=== PATIENT | male | born 1990 | race Caucasian/White ===

== ENCOUNTER 2023-08-21 04:48 | Inpatient (IN) | payer BC ==
--- OUTSIDE RECORDS SUMMARY | 2023-08-21 04:52 | XMS REPORT | Continuity of Care Document ---
Author Name Unknown Address [address] [place] [address] [facility] Address [address] [place] [address] Care Team Providers Care Library Cataloging Technician Name Role Phone PCP, PATIENT DOES NOT HAVE A Primary Care Physic adam Unavailable PARVIN WALLER Attending Clinician Unavailable Parvin Champagne Attending Clinician [phone] NICKIE CHIN Attending Clinician Unavailable NICKIE CHIN Admitting Clinician Unavailable Payers Payer Name Policy Type Policy Number Effective Date Expirati on Date Source [facility] [place] - OUT OF STATE [id number] 2021 00:00:00 Problems Condition Name Condition Details Condition Category Status Onset Date Resolution Date Last Treatment Date Treating Clinician Comments Source No known active problems No known active problems Disease [facility] Allergies, Adverse Reactions, Alerts Allergy Name Allergy Type Status Severity Reaction(s) Onset Date Inactive Date Treating Clinician Comments Source Penicill ins Propensi ty to adverse reaction s Active Other - See comments 03-05 00:00: 00 Childhood allergy [facility] PENICILL INS Drug Class Active Other-Cmnt 03-05 00:00: 00 [facility] Social History Social Habit Start Date Stop Date Quantity Comments Source Exposure to SARS-CoV-2 (event) 2022-02-23 00:00:00 2022-03-05 15:13:00 Not sure [facility] Sex Assigned At 1990 00:00:00 1990 00:00:00 [facility] Smoking Status Start Date Stop Date Source Tobacco smoking consumption unknown [facility] Medications Ordered Medication Name Filled Medication Name Start Date Stop Date Current Medication? Ordering Clinician Indication Dosage Frequency Signature (SIG) Comments Components Source ibuprofen (IBU) tablet 800 mg 03-05 20:30: 00 03-05 21:03 :00 No 800mg 800 mg, Oral, ONCE, 1 dose, On Sat03/05/22 at 1530, [place] [facility] acetaminoph en (TYLENOL) tablet 1,000 mg 03-05 20:30: 00 03-05 21:03 :00 No 1000mg 1,000 mg, Oral, ONCE, 1 dose, On Sat03/05/22 at 1530, Routine [facility] ondansetron 4 mg disintegrat ing tablet 03-05 00:00: 00 Yes [id number] 4mg Take 1 tablet by mouth every 8 (eight) hours as needed for Nausea and Vomiting (N/V). [facility] benzonatate 200 mg capsule 03-05 00:00: 00 Yes [id number] 200mg Take 1 capsule by mouth 3 (three) times daily as needed for Cough. [facility] codeine-gua ifenesin 10-100 mg/5 mL oral solution 03-05 00:00: 00 03-13 04:59 :00 No [id number] 10mL Take 10 mL by mouth every 6 (six) hours as needed for Cough for up to 7 days. Indication s: acute pain [facility] Vital Signs Vital Name Observation Time Observation Value Comments S mario Systolic blood pressure 2022-03-05 20:14:00 123 mm[Hg] [facility] Diastolic blood pressure 2022-03-05 20:14:00 86 mm[Hg] [facility] Heart rate 2022-03-05 20:14:00 102 /min [facility] Body temperature 2022-03-05 20:14:00 39.56 Amanda [facility] Respiratory rate 2022-03-05 20:14:00 19 /min [facility] Body height 2022-03-05 20:14:00 177.8 cm [facility] Body weight 2022-03-05 20:14:00 90.719 kg [facility] BMI 2022-03-05 20:14:00 28.70 kg/m2 [facility] Oxygen saturation in Arterial blood by Pulse oximetry 2022-03-05 20:14:00 100 /min [facility] Procedures Procedure Date / Time Performed Performing Clinicia n Source COVID-19 (ID NOW RAPID TESTING) 2022-03-05 20:20:00 Parvin Waller [facility] NOTICE OF PRIVACY PRACTICES 2022-03-05 19:56:55 Doctor Unassigned, [place] [facility] Encounters Start Date/Time End Date/Time Encounter Type Admission Type Attending Clinicians Care Facility Care Department Encounter ID Source 2022-03-05 15:15:00 2022-03-05 16:12:00 Emergency X PARVIN WALLER [facility] ERT [id number] [facility] 2022-03-05 15:15:00 2022-03-05 16:12:00 Emergency Parvin Waller [facility] [id number] [facility] 2017-09-11 00:40:00 2017-09-12 15:18:00 Inpatient ER NICKIE CHIN [facility] [id number] [facility]
[2023-08-21] MEDS ORDERED: ONDANSETRON 4 MG/2 ML VIAL ONE (05:28)
[2023-08-21] MEDS ORDERED: NA CHLORIDE 0.9% 1,000 ML ONE ×2 (05:28→06:53)
[2023-08-21] MEDS ORDERED: FAMOTIDINE 20 MG/2 ML VIAL IV ONE (05:28)
[2023-08-21] MEDS ORDERED: MORPHINE 4 MG/ML SYR ONE (05:28)
[2023-08-21 05:48] LABS: Specific Gravity 1.027 (1.005-1.030); Urine Bilirubin NEGATIVE (Negative); Urine Blood Negative (Negative); Urine Clarity Clear (Clear); Urine Color Yellow (Yellow); Urine Glucose NEGATIVE (Negative); Urine Protein NEGATIVE (Negative); Urine Urobilinogen Normal (Normal)
[2023-08-21 05:50] LABS: Absolute Lymphocytes (CBC) 1.7 K/uL (0.7-4.9); Hematocrit 47.7 % (39.6-49.0); Lymphocytes % 16.6 % (15.3-44.8); MCV 90.8 fL (80-100); MPV 9.9 fL (7.6-11.3); Platelets 230 thou/uL (152-406); RBC Red Blood Cell Count 5.26 M/uL (4.33-5.43)
[2023-08-21 06:05] LABS: Albumin 4.1 g/dL (3.4-5.0); Bilirubin Total 0.7 mg/dL (0.2-1.0); Potassium 3.8 mEq/L (3.5-5.1); Protein, Total 8.7 g/dL (6.4-8.2)
--- NOTE | 2023-08-21 06:49 | EDPHYS ---
Physician Documentation [facility] Name: Suhail Grajeda Age: 32 yrs Sex: Male : 1990 Arrival Date: 08/21/2023 Time: 04:48 Bed 13 Private MD: ED Physician Alexander Singh HPI: 08/21 05:06 This 32 yrs old Male presents to ER via Unassigned with complaints of lyndon Abdominal Pain. 05:06 The patient presents with abdominal pain in the lower abdomen, abdominal distention in lyndon the upper abdomen, in the lower abdomen. Onset: The symptoms/episode began/occurred yesterday. The symptoms do not radiate. Associated signs and symptoms: none. The symptoms are described as crampy. Modifying factors: The symptoms are alleviated by nothing, the symptoms are aggravated by nothing. Severity of pain: At its worst the pain was moderate in the emergency department the pain is unchanged. The patient has not experienced similar symptoms in the past. Historical: - Allergies: 05:13 PENICILLINS; tm6 - PMHx: 05:13 Myocardial infarction; tm6 - PSHx: 05:13 Appendectomy; right arm surgery for break; tm6 - Immunization history:: Adult Immunizations up to date, Client reports having NOT received the Covid vaccine. Flu vaccine is not up to date. - Social history:: Smoking status: Patient denies any tobacco usage or history of. Patient uses alcohol, occasionally. - Family history:: not pertinent. ROS: 05:06 Constitutional: Negative for fever, chills, and weight loss, Eyes: Negative for injury, lyndon pain, redness, and discharge, ENT: Negative for injury, pain, and discharge, Neck: Negative for injury, pain, and swelling, Cardiovascular: Negative for chest pain, palpitations, and edema, Respiratory: Negative for shortness of breath, cough, wheezing, and pleuritic chest pain, Back: Negative for injury and pain, : Negative for injury, bleeding, discharge, and swelling, MS/Extremity: Negative for injury and deformity, Skin: Negative for injury, rash, and discoloration, Neuro: Negative for headache, weakness, numbness, tingling, and seizure, Psych: Negative for depression, anxiety, suicide ideation, homicidal ideation, and hallucinations, Allergy/Immunology: Negative for hives, rash, and allergies, Endocrine: Negative for neck swelling, polydipsia, polyuria, polyphagia, and marked weight changes, Hematologic/Lymphatic: Negative for swollen nodes, abnormal bleeding, and unusual bruising, 05:06 Abdomen/GI: Positive for abdominal pain, nausea, abdominal cramps, abdominal distension, of the right lower quadrant and left lower quadrant, Exam: 05:06 Constitutional: This is a well developed, well nourished patient who is awake, alert, lyndon and in no acute distress. Head/Face: Normocephalic, atraumatic. Eyes: Pupils equal round and reactive to light, extra-ocular motions intact. Lids and lashes normal. Conjunctiva and sclera are non-icteric and not injected. Cornea within normal limits. Periorbital areas with no swelling, redness, or edema. ENT: Nares patent. No nasal discharge, no septal abnormalities noted. Tympanic membranes are normal and external auditory canals are clear. Oropharynx with no redness, swelling, or masses, exudates, or evidence of obstruction, uvula midline. Mucous membranes moist. Neck: Trachea midline, no thyromegaly or masses palpated, and no cervical lymphadenopathy. Supple, full range of motion without nuchal rigidity, or vertebral point tenderness. No Meningismus. Chest/axilla: Normal chest wall appearance and motion. Nontender with no deformity. No lesions are appreciated. Cardiovascular: Regular rate and rhythm with a normal S1 and S2. No gallops, murmurs, or rubs. Normal PMI, no JVD. No pulse deficits. Respiratory: Lungs have equal breath sounds bilaterally, clear to auscultation and percussion. No rales, rhonchi or wheezes noted. No increased work of breathing, no retractions or nasal flaring. Back: No spinal tenderness. No costovertebral tenderness. Full range of motion. Male : Normal genitalia with no discharge or lesions. Skin: Warm, dry with normal turgor. Normal color with no rashes, no lesions, and no evidence of cellulitis. MS/ Extremity: Pulses equal, no cyanosis. Neurovascular intact. Full, normal range of motion. Neuro: Awake and alert, GCS 15, oriented to person, place, time, and situation. Cranial nerves II-XII grossly intact. Motor strength 5/5 in all extremities. Sensory grossly intact. Cerebellar exam normal. Normal gait. Psych: Awake, alert, with orientation to person, place and time. Behavior, mood, and affect are within normal limits. 05:06 Abdomen/GI: Inspection: distension, Bowel sounds: normal, Palpation: mild abdominal tenderness, in the right lower quadrant and left lower quadrant, Liver: no appreciated palpable abnormalities, Hernia: not appreciated, Vital Signs: 05:12 BP 139 / 94; Pulse 67; Resp 17; Temp 98(O); Pulse Ox 98% on R/A; Weight 95.25 kg; tm6 Height 5 ft. 9 in. ; Pain 8/10; 05:45 BP 135 / 86; Pulse 73; Pulse Ox 96% on R/A; tm6 06:25 BP 126 / 71; Pulse 65; Pulse Ox 97% on R/A; Pain 4/10; tm6 05:12 Body Mass Index 31.01 (95.25 kg, 175.26 cm) [facility] 05:12 Pain Scale: Adult 6 06:25 Pain Scale: Adult 6 MDM: 04:55 Patient medically screened. [facility] 05:10 Differential diagnosis: bowel obstruction, Cholelithiasis, diverticulitis, lyndon gastroesophageal reflux disease, non-specific abd pain, pancreatitis, Peptic Ulcer Disease, Pyelonephritis, urinary tract infection. Data reviewed: vital signs, nurses notes, lab test result(s), radiologic studies, CT scan. Consideration of Admission/Observation Escalation of care including admission/observation considered. I considered the following discharge prescriptions or medication management in the emergency department Medications were administered in the Emergency Department. See MAR. Independent interpretation of the following test(s) in the Emergency Department CT Scan: My interpretation is ct abd/pelvis. Test considered but Not performed: EKG: no ekg needed. Care significantly affected by the following chronic conditions:. 08/21 04:57 Order name: CBC with Diff; Complete Time: 06:12 [facility] 08/21 04:57 Order name: CMP; Complete Time: 06:12 [facility] 08/21 04:57 Order name: Lipase; Complete Time: 06:12 [facility] 08/21 04:57 Order name: Urinalysis w/ reflexes; Complete Time: 06:12 [facility] 08/21 04:57 Order name: CT Abd/Pelvis - IV Contrast Only [facility] 08/21 04:57 Order name: IV Saline Lock; Complete Time: 05:41 [facility] 08/21 04:57 Order name: Labs collected and sent; Complete Time: 05:41 lyndon Administered Medications: 05:41 Drug: NS 0.9% IV 1000 ml IV at 1 bolus Per protocol; 1000 mL bolus Route: IV; Rate: 1 tm6 bolus; Site: right antecubital; 07:02 Follow up: Response: No adverse reaction; IV Intake: 1000ml tm6 08:20 Follow up: IV Status: Completed infusion; IV Intake: 1000ml db 05:41 Drug: Famotidine IVP 20 mg IVP once; dilute with 10 mL 0.9% NaCl; give over 2 minutes tm6 Route: IVP; Site: right antecubital; 08:20 Follow up: Response: No adverse reaction db 05:41 Drug: Ondansetron IVP 4 mg IVP once; over 2 minutes Route: IVP; Site: right antecubital;tm6 08:20 Follow up: Response: No adverse reaction db 05:41 Drug: morphine IVP or IV 4 mg IVP once over 4 mins Route: IVP; Infused Over: 4 mins; tm6 Site: right antecubital; 07:02 Drug: metroNIDAZOLE IVPB 500 mg 100 ml IVPB at 200 ml/hr once over 30 mins Volume: 100 tm6 ml; Route: IVPB; Rate: 200 ml/hr; Infused Over: 30 mins; Site: right antecubital; 07:30 Follow up: Response: No adverse reaction; IV Status: Completed infusion db 07:03 Drug: NS 0.9% IV 1000 ml IV at 1 bolus Per protocol; 1000 mL bolus Route: IV; Rate: 1 tm6 bolus; Site: right antecubital; 08:20 Follow up: IV Status: Completed infusion db 08:00 Drug: Ciprofloxacin IVPB 400 mg 200 ml IVPB once over 60 mins Volume: 200 ml; Route: db IVPB; Infused Over: 60 mins; Site: right antecubital; 08:20 Follow up: IV Status: Infusion continued upon admission db Disposition Summary: 08/21/23 06:49 Hospitalization Ordered Notes: Hospitalization Status: Inpatient Admission lyndon Provider: Edgar South cha [facility] lyndon Condition: Stable lyndon Problem: new lyndon Symptoms: have improved lyndon Bed/Room Type: Standard [facility] Room Assignment: 224(08/21/23 07:38) bd Diagnosis - Other intestinal obstruction - early obstruction lyndon - Abdominal tenderness lyndon Forms: - Medication Reconciliation Form lyndon - SBAR form lyndon - Leadership Thank You Letter lyndon Signatures: Dispatcher [employer] Kassy Hernandez Corey, MD MD cha Benton, Danielle RN RN db Venessa Spencer RN RN tm6 Corrections: (The following items were deleted from the chart) 07:38 06:49 lyndon bd
--- NOTE | 2023-08-21 06:49 | ER ---
Nurse's Notes [facility] Name: Suhail Grajeda Age: 32 yrs Sex: Male : 1990 Arrival Date: 08/21/2023 Time: 04:48 Bed 13 Private MD: Diagnosis: Other intestinal obstruction-early obstruction ;Abdominal tenderness Presentation: 08/21 05:12 Chief complaint: Patient states: lower abdominal pain that started yesterday evening. tm6 8/10 sharp pain. Coronavirus screen: Vaccine status: Patient reports being unvaccinated. Ebola Screen: Patient negative for fever greater than or equal to 101.5 degrees Fahrenheit, and additional compatible Ebola Virus Disease symptoms Patient denies exposure to infectious person. Patient denies travel to an Ebola-affected area in the 21 days before illness onset. No symptoms or risks identified at this time. Initial Sepsis Screen: Does the patient meet any 2 criteria? No. Patient's initial sepsis screen is negative. Does the patient have a suspected source of infection? No. Patient's initial sepsis screen is negative. Risk Assessment: Do you want to hurt yourself or someone else? Patient reports no desire to harm self or others. Onset of symptoms was August 20, 2023. 05:12 Method Of Arrival: Ambulatory tm6 05:12 Acuity: EJ 3 tm6 Triage Assessment: 05:13 General: Appears in no apparent distress. uncomfortable, Behavior is calm, cooperative. tm6 Pain: Complains of pain in left lower quadrant and right lower quadrant Pain currently is 8 out of 10 on a pain scale. Quality of pain is described as sharp, Pain began 1 day ago. EENT: No signs and/or symptoms were reported regarding the EENT system. Neuro: Level of Consciousness is awake, alert, obeys commands. Cardiovascular: Capillary refill < 3 seconds Patient's skin is warm and dry. Respiratory: Airway is patent Respiratory effort is even, unlabored, Respiratory pattern is regular, symmetrical. GI: Abdomen is flat, non-distended, Abd is soft Abdomen is tender to palpation in right lower quadrant and left lower quadrant Reports lower abdominal pain. : No signs and/or symptoms were reported regarding the genitourinary system. Derm: No signs and/or symptoms reported regarding the dermatologic system. Musculoskeletal: No signs and/or symptoms reported regarding the musculoskeletal system. Historical: - Allergies: 05:13 PENICILLINS; tm6 - PMHx: 05:13 Myocardial infarction; tm6 - PSHx: 05:13 Appendectomy; right arm surgery for break; tm6 - Immunization history:: Adult Immunizations up to date, Client reports having NOT received the Covid vaccine. Flu vaccine is not up to date. - Social history:: Smoking status: Patient denies any tobacco usage or history of. Patient uses alcohol, occasionally. - Family history:: not pertinent. Screenin:16 [facility] ED Fall Risk Assessment (Adult) History of falling in the last 3 months, tm6 including since admission No falls in past 3 months (0 pts). Abuse screen: Denies threats or abuse. Denies injuries from another. Nutritional screening: No deficits noted. Tuberculosis screening: No symptoms or risk factors identified. Assessment: 05:16 Reassessment: see triage assessment. tm6 06:25 Reassessment: Patient appears in no apparent distress at this time. Patient and/or tm6 family updated on plan of care and expected duration. Pain level reassessed. Patient is alert, oriented x 3, equal unlabored respirations, skin warm/dry/pink. 07:15 Neuro: Level of Consciousness is awake, alert, obeys commands, Oriented to. db 07:15 Respiratory: Airway is patent Respiratory effort is even, unlabored, Respiratory db pattern is regular, symmetrical. GI:. 07:57 Reassessment: Patient appears in no apparent distress at this time. Patient and/or db family updated on plan of care and expected duration. Pain level reassessed. Patient is alert, oriented x 3, equal unlabored respirations, skin warm/dry/pink. General: Appears in no apparent distress. comfortable, Behavior is calm, cooperative. 07:59 Reassessment: REPORT GIVEN TO MEGHAN. spencer Vital Signs: 05:12 BP 139 / 94; Pulse 67; Resp 17; Temp 98(O); Pulse Ox 98% on R/A; Weight 95.25 kg; tm6 Height 5 ft. 9 in. ; Pain 8/10; 05:45 BP 135 / 86; Pulse 73; Pulse Ox 96% on R/A; tm6 06:25 BP 126 / 71; Pulse 65; Pulse Ox 97% on R/A; Pain 4/10; tm6 05:12 Body Mass Index 31.01 (95.25 kg, 175.26 cm) tm6 05:12 Pain Scale: Adult tm6 06:25 Pain Scale: Adult tm6 ED Course: 04:54 Patient arrived in ED. gm2 04:55 Alexander Singh MD is Attending Physician. lyndon 05:11 Venessa Spencer RN is Primary Nurse. tm6 05:13 Triage completed. tm6 05:13 Arm band placed on right wrist. tm6 05:16 Patient has correct armband on for positive identification. Bed in low position. Call tm6 light in reach. Side rails up X2. Provided Education on: plan of care. Client placed on continuous cardiac and pulse oximetry monitoring. NIBP monitoring applied. Door closed. Noise minimized. 05:16 No provider procedures requiring assistance completed. tm6 06:06 CT Abd/Pelvis - IV Contrast Only In Process Unspecified. EDMS 06:48 Edgar South MD is Hospitalizing Provider. lyndon 07:07 Report given to Laura MANJARREZ. tm6 07:56 Patient admitted, IV remains in place. db Administered Medications: 05:41 Drug: NS 0.9% IV 1000 ml IV at 1 bolus Per protocol; 1000 mL bolus Route: IV; Rate: 1 tm6 bolus; Site: right antecubital; 07:02 Follow up: Response: No adverse reaction; IV Intake: 1000ml tm6 08:20 Follow up: IV Status: Completed infusion; IV Intake: 1000ml db 05:41 Drug: Famotidine IVP 20 mg IVP once; dilute with 10 mL 0.9% NaCl; give over 2 minutes tm6 Route: IVP; Site: right antecubital; 08:20 Follow up: Response: No adverse reaction db 05:41 Drug: Ondansetron IVP 4 mg IVP once; over 2 minutes Route: IVP; Site: right antecubital;tm6 08:20 Follow up: Response: No adverse reaction db 05:41 Drug: morphine IVP or IV 4 mg IVP once over 4 mins Route: IVP; Infused Over: 4 mins; tm6 Site: right antecubital; 07:02 Drug: metroNIDAZOLE IVPB 500 mg 100 ml IVPB at 200 ml/hr once over 30 mins Volume: 100 tm6 ml; Route: IVPB; Rate: 200 ml/hr; Infused Over: 30 mins; Site: right antecubital; 07:30 Follow up: Response: No adverse reaction; IV Status: Completed infusion db 07:03 Drug: NS 0.9% IV 1000 ml IV at 1 bolus Per protocol; 1000 mL bolus Route: IV; Rate: 1 tm6 bolus; Site: right antecubital; 08:20 Follow up: IV Status: Completed infusion db 08:00 Drug: Ciprofloxacin IVPB 400 mg 200 ml IVPB once over 60 mins Volume: 200 ml; Route: db IVPB; Infused Over: 60 mins; Site: right antecubital; 08:20 Follow up: IV Status: Infusion continued upon admission db Medication: 05:16 VIS not applicable for this client. tm6 Intake: 07:02 IV: 1000ml; Total: 1000ml. tm6 08:20 IV: 1000ml; Total: 2000ml. db Output: 05:46 Gastric: 1000ml (Emesis); Total: 1000ml. tm6 Outcome: 06:49 Decision to Hospitalize [facility] 07:56 Admitted to ER Hold. Please see [facility] for further documentation. db 07:56 Condition: stable 07:56 Instructed on the need for admit, 08:21 Patient left the ED. db Signatures: Dispatcher [employer] EDAlexander So MD MD cha Benton, Danielle, JOSSELINE RN Chiquita Tamez [facility] Venessa Spencer RN RN tm6 Corrections: (The following items were deleted from the chart) 05:47 05:46 Reassessment: 1000mL of emesis tm6 tm6 07:59 07:15 Reassessment: REPORT GIVEN TO RODDY spencer db
[2023-08-21] MEDS ORDERED: METRONIDAZOLE 500mg IVPB 500 MG/100 ML BAG IV ONE (06:54)
[2023-08-21] MEDS ORDERED: CIPROFLOXACIN 400mg IV 400 MG/200 ML BAG IV ONE (06:54)
[2023-08-21] MEDS ORDERED: MORPHINE 4 MG/ML SYR IV PRN (07:24)
[2023-08-21] MEDS ORDERED: ONDANSETRON 4 MG/2 ML VIAL IV PRN (07:24)
[2023-08-21] MEDS ORDERED: ACETAMINOPHEN 325 MG TABLET PO PRN (07:24)
[2023-08-21 07:36] VITALS: BMI 31.0
[2023-08-21 08:19] VITALS: O2SAT 96
[2023-08-21] MEDS ORDERED: FAMOTIDINE 20 MG/2 ML VIAL IV SCH (09:00)
--- NOTE | 2023-08-21 10:29 | RAD REPORT ---
EXAM DESCRIPTION: CT - Abdomen Pelvis W Contrast - 08/21/2023 7:22 am CLINICAL HISTORY: The patient is 32 years old and is Male; ABD PAIN TECHNIQUE: Axial computed tomography images of the abdomen and pelvis with intravenous contrast. S agittal and coronal reformatted images were created and reviewed. This CT exam was performed using one or more of the following dose reduction techniques: automated exposure control, adjustment of t he mA and/or kV according to patient size, and/or use of iterative reconstruction technique. COMPARISON: No relevant prior studies available. FINDINGS: Lung bases: Unremarkable. No mass. No consolidation. ABDOMEN: Liver: Unremarkable. No mass. Gallbladder and bile ducts: Unremarkable. No calcified stones. No ductal dilation. Pancreas: Unremarkable. No mass. No ductal dilation. Spleen: Unremarkable. No splenomegaly. Adrenals: Unremarkable. No mass. Kidneys and ureters: Unremarkable. No solid mass. No hydronephrosis. Stomach and bowel: Suggestion of some focal mucosal thickening involving the distal ileum. Proxim al to this, the small bowel is mildly dilated with air-fluid levels, fecalization, and some adjacent free fluid in the lower pelvis. Submucosal fatty infiltration involving the proximal colon which is nonspecific but can be se en with chronic inflammation. Scattered colonic diverticula. PELVIS: Appendix: No findings to suggest acute appendicitis. Bladder: Unremarkable. Reproductive: Unremarkable as visualized. ABDOMEN and PELVIS: Intraperitoneal space: See above. Bones/joints: No acute fracture. No dislocation. Soft tissues: Unremarkable. Vasculature: Unremarkable. No abdominal aortic aneurysm. Lymph nodes: Unremarkable. No enlarged lymph nodes. IMPRESSION: 1. Suggestion of some focal mucosal thickening involving the distal ileum. Proximal to this, the small bowel is mildly dilated with air-fluid levels, fecalization, and some adjacent free fluid in the lower pelvis. Findings are suggestive of enteritis with ileus or obstruction. 2. Submucosal fatty infiltration involving the proximal colon which is nonspecific but can be seen with chronic inflammation. 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 The interpreting r adiologist is fully responsible for the content of the report.
[2023-08-21] MEDS: D5 0.45 NS 1,000 ML IV SCH ×3 (10:35→20:25)
[2023-08-21] MEDS: METRONIDAZOLE 500mg IVPB 500 MG/100 ML BAG IV SCH ×2 (12:11→17:37)
--- NOTE | 2023-08-21 13:00 | RAD REPORT ---
EXAM DESCRIPTION: RAD - Abdomen W Erect - 08/21/2023 11:16 am CLINICAL HISTORY: sbo COMPARISON: No comparisons TECHNIQUE: Single AP view of the abdomen. FINDINGS: Mild distention of central small bowel, caliber measuring up to 2.9 cm. No air-fluid level s, free air, or pneumatosis. No suspicious calcifications. No significant bony abnormality. IMPRESSION: Mild distention of central small bowel, may represent ileus or low grade obstruction.
--- NOTE | 2023-08-21 17:06 | P.HP ---
Date of Service: 08/21/23 PC: This 32-year-old male presented the emergency room with severe abdominal pain for diagnosis and treatment. HPC: Patient recently had a large meal of fajita meat. Last night started experiencing abdominal discomfort. Describes it as a hard nonstop cramping type pain. Became unbearable and he came to the emergency room for evaluation and treatment. 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 PMHx: Negative Social Hx: Allergic to penicillin Sys R: No cough, wheeze, or shortness of breath. No chest pain or palpitations. Has not had any dietary distress over the last couple of years, and this is his first episode. No temperature or fever, no diarrhea. O/E: Awake alert vital signs are stable HEENT: Negative Chest: Chest movement equal bilaterally Abd: Soft nontender no masses are palpable, no guarding or rebound Emily: Intact Data: CT scan suggest possible ileus or obstruction, distal ileum. Impression: Partial small bowel obstruction Plan: Patient has been n.p.o., and had bowel rest today. Will start him on some clear liquids with some mineral oil. He will have a regular diet in the morning. Anticipate that this will pass without requiring any surgical intervention.
[2023-08-21] MEDS ORDERED: MINERAL OIL 30 ML UCUP PO ONE (17:09)
[2023-08-21] MEDS: CIPROFLOXACIN 400mg IV 400 MG/200 ML BAG IV SCH (20:26)
[2023-08-21] MEDS: FAMOTIDINE 20 MG/2 ML VIAL IV SCH (20:26)
[2023-08-22] MEDS: METRONIDAZOLE 500mg IVPB 500 MG/100 ML BAG IV SCH ×3 (00:56→13:11)
[2023-08-22] MEDS: D5 0.45 NS 1,000 ML IV SCH (06:07)
[2023-08-22 06:52] LABS: Hematocrit 42.4 % (39.6-49.0); Lymphocytes % 33.6 % (15.3-44.8); MCV 91.1 fL (80-100); MPV 9.8 fL (7.6-11.3); Platelets 188 thou/uL (152-406); RBC Red Blood Cell Count 4.65 M/uL (4.33-5.43)
[2023-08-22 07:07] LABS: Albumin 3.1 g/dL (3.4-5.0); Bilirubin Direct 0.2 mg/dL (0-0.2); Bilirubin Indirect, Calculated 0.5 mg/dL (0.2-0.8); Bilirubin Total 0.7 mg/dL (0.2-1.0); Potassium 3.7 mEq/L (3.5-5.1); Protein, Total 6.7 g/dL (6.4-8.2)
[2023-08-22] MEDS: CIPROFLOXACIN 400mg IV 400 MG/200 ML BAG IV SCH (08:48)
[2023-08-22] MEDS: FAMOTIDINE 20 MG/2 ML VIAL IV SCH (08:54)
--- NOTE | 2023-08-22 15:25 | P.DS ---
Admission Date: 08/21/23 Discharge Date: 08/22/23 Disposition: ROUTINE DISCHARGE Discharge Condition: GOOD Reason for Admission: Abdominal pain, Brief History of Present Illness: This patient, noticed he was having severe right lower quadrant abdominal pain. Came in for diagnosis and treatment. Hospital Course: Patient was evaluated in the emergency room. A CT scan of the abdomen pelvis was ordered, it demonstrated an area of fat necrosis in the fat in the left lower side of the pelvis. Patient was admitted for observation and pain control. Today he is up ambulating, feels well. He also has bilateral inguinal hernias which are he is asymptomatic. Vital Signs/Physical Exam: Temp Pulse Resp BP Pulse Ox 97.5 F 51 19 121/74 97 08/22/23 08:00 08/22/23 08:00 08/22/23 08:00 08/22/23 08:00 08/22/23 08:00 Laboratory Data at Discharge: WBC 5.90 thou/uL (4.3-10.9) 08/22/23 06:14 Hgb 15.0 g/dL (13.6-17.9) D 08/22/23 06:14 Hct 42.4 % (39.6-49.0) 08/22/23 06:14 Plt Count 188 thou/uL (152-406) 08/22/23 06:14 Sodium 141 mEq/L (136-145) D 08/22/23 06:14 Potassium 3.7 mEq/L (3.5-5.1) 08/22/23 06:14 BUN 10 mg/dL (7-18) 08/22/23 06:14 Creatinine 0.93 mg/dL (0.70-1.30) 08/22/23 06:14 Glucose 102 mg/dL (74-106) 08/22/23 06:14 Total Bilirubin 0.7 mg/dL (0.2-1.0) 08/22/23 06:14 AST 17 U/L (15-37) 08/22/23 06:14 ALT 40 U/L (16-61) 08/22/23 06:14 Alkaline Phosphatase 72 U/L (45-117) D 08/22/23 06:14 Lipase 56 U/L (13-75) 08/22/23 06:14 Home Medications: NK [No Home Meds] 08/21/23 Physician Discharge Instructions: DC IV, DC home. Ambulate. Any questions or problems, go to the emergency room, or contact me. Patient is free to follow-up in my office as needed. Diet: Regular Activity: Ad nicole Followup: NONE,NONE [Primary Care Provider] -
[2023-08-22 17:26] VITALS: BP 136/80; TEMP 97.1
== END 2023-08-22 17:30 | disposition home or self-care (01) | DRG 390 ==
LOC: ER 04:48 → ERHOLD 07:04 → 2ND 07:53
PROVIDERS: ADMIT Surgery; ATTEND Surgery
DX: K56.600 Partial intestinal obstruction, unspecified as to cause (principal); K40.20 Bilateral inguinal hernia, without obstruction or gangrene, not specified as recurrent; M79.89 Other specified soft tissue disorders; I25.2 Old myocardial infarction; Z88.0 Allergy status to penicillin; Z90.49 Acquired absence of other specified parts of digestive tract; Z28.310 Unvaccinated for COVID-19
CPT/HCPCS: 36415; 74019; 74177; 80048; 80053; 80076; 81003; 83690; 85025; 96361; 96365; 96367; 96375; 99285; J0744; J2405; J7030; J7799; Q9967